=== PATIENT | female | born 1945 | race Caucasian/White ===

== ENCOUNTER 2021-08-27 05:39 | Emergency (ER) | payer MEDICARE ==
[~2021-08-27] VITALS: Ht 147.3 cm; Wt 45.4 kg
[2021-08-27 07:58] LABS: INFLUENZA A NAA NEGATIVE (NEGATIVE)
[2021-08-27 08:00] LABS: CORONAVIRUS 2019 SARS-COV-2 POSITIVE (NEGATIVE)
[2021-08-27 08:09] LABS: BASOPHIL 0.3 % (0-2); EOSINOPHIL 0.1 % (0-7); HCT 36.1 % (37.0-47.0); HGB 11.6 g/dl (12.5-16.0); LYMPHOCYTE 8.4 % (15-48); MCH 30.6 pg (25.0-31.0); MCHC 32.1 g/dL (32.0-36.0); MCV 95.3 fL (78.0-100.0); MONOCYTE 8.1 % (0-12); MPV 10.5 fL (6.0-9.5); NRBC 0; PLT 415 K/uL (150-400); RBC 3.79 M/uL (4.20-5.40); RDW 13.3 % (11.5-14.0); WBC 11.9 K/uL (4.0-10.5)
[2021-08-27 08:13] LABS: INR 1.9 (0.9-1.2)
[2021-08-27 08:14] LABS: PTT 59.3 SECONDS (24.4-34.7)
[2021-08-27 08:37] LABS: ALBUMIN 3.3 g/dL (3.4-5.0); BILIRUBIN - TOTAL 0.3 mg/dL (0.2-1.0); BUN/CREAT RATIO (CALC) 44.5 RATIO; C-REACTIVE PROTEIN 10.1 mg/dL (<=0.90); CREATININE 1.1 mg/dL (0.51-0.95); GLOBULIN (CALCULATION) 3.6 g/dL; POTASSIUM 4.4 mmol/L (3.5-5.1); TOTAL PROTEIN 6.9 g/dL (6.4-8.2)
[2021-08-27 09:14] LABS: LACTIC ACID 1.5 mmol/L (0.4-1.9)
[2021-08-27 09:37] LABS: IRON % SATURATION 21.3 %SAT (20-50)
[2021-08-27 12:29] LABS: POTASSIUM 3.9 mmol/L (3.5-5.1)
[2021-08-27 13:34] LABS: BILIRUBIN NEGATIVE (NEGATIVE); BLOOD NEGATIVE Ery/uL (NEGATIVE); CLARITY CLEAR (CLEAR); COLOR YELLOW (YELLOW); GLUCOSE (U) NORMAL (NORMAL); LEUKOCYTES NEGATIVE Leu/uL (NEGATIVE); NITRITE NEGATIVE (NEGATIVE); PROTEIN NEGATIVE (NEGATIVE); SPECIFIC GRAVITY 1.025 (1.001-1.030); UROBILINOGEN 0.2 mg/dL (0.2-1.0); pH 5.5 (5.0-9.0)
[2021-08-27 16:20] LABS: BUN/CREAT RATIO (CALC) 37.2 RATIO; CREATININE 0.94 mg/dL (0.51-0.95); POTASSIUM 3.5 mmol/L (3.5-5.1)
== END 2021-08-27 18:35 | disposition home or self-care (01) ==
LOC: FER 05:39
PROVIDERS: Emergency Medicine; Internal Medicine
DX: U07.1 COVID-19 (principal); E86.0 Dehydration; E87.2 Acidosis; F19.10 Other psychoactive substance abuse, uncomplicated; I10 Essential (primary) hypertension; Z79.82 Long term (current) use of aspirin; Z79.899 Other long term (current) drug therapy
CPT/HCPCS: 36415; 71250; 80048; 80053; 81003; 82728; 83540; 83550; 83605; 83615; 83880; 84145; 84484; 85025; 85610; 85730; 86140; 93005; J7120; U0002